=== PATIENT | female | born 1990 | race Caucasian/White ===

== ENCOUNTER → 2017-04-07 | Outpatient (CLI) | payer OTHER ==
[~2017-04-07] MED LIST: IRON18 MG PO; PRENATAL VITAM1 EAC2 PO
== END ==
LOC: LAB 16:59 → LAB SHORT 16:59
DX: R30.0 Dysuria (principal)
CPT/HCPCS: 87086

== ENCOUNTER 2017-09-29 05:50 | Inpatient (IN) | payer OTHER ==
[~2017-09-29] VITALS: Ht 160 cm; Wt 75.5 kg
[2017-09-29] MEDS ORDERED: IRON18 MG PO (06:15)
[2017-09-29] MEDS ORDERED: PRENATAL VITAM1 EAC2 PO (06:15)
[2017-09-29 06:32] LABS: BASOPHILS ABSOLUTE AUTO 0.02 K/mm3 (0.00-0.23); BASOPHILS PERCENT AUTO 0 % (0-2); EOSINOPHILS ABSOLUTE AUTO 0.06 K/mm3 (0.00-0.68); EOSINOPHILS PERCENT AUTO 1 % (0-6); Hematocrit 36.5 % (33.0-51.0); Hemoglobin 12.3 g/dL (11.5-16.0); IMMATURE GRAN ABSOLUTE AUTO 0.05 K/mm3 (0.00-0.10); IMMATURE GRAN PERCENT AUTO 1 % (0-1); LYMPHOCYTES PERCENT AUTO 20 % (21-46); MONOCYTES ABSOLUTE AUTO 0.62 K/mm3 (0.16-1.47); MONOCYTES PERCENT AUTO 6 % (4-13); Mean Corpuscular HGB 32.9 pg (26.0-34.0); Mean Corpuscular HGB Conc 33.7 g/dL (31.5-36.5); Mean Corpuscular Volume 98 fL (80-100); Mean Platelet Volume 11.4 fL (9.1-12.4); NEUTROPHILS ABSOLUTE AUTO 7.51 K/mm3 (1.96-9.15); NEUTROPHILS PERCENT AUTO 73 % (41-73); Platelet Count 235 K/mm3 (150-400); RDW Coefficient Variation 13.7 % (11.7-14.2); RDW Standard Deviation 49.5 fL (35.1-46.3); Red Blood Cell Count 3.74 M/mm3 (3.80-5.20); White Blood Cell Count 10.26 K/mm3 (4.00-11.30)
[2017-09-30 05:47] LABS: BASOPHILS ABSOLUTE AUTO 0.02 K/mm3 (0.00-0.23); BASOPHILS PERCENT AUTO 0 % (0-2); EOSINOPHILS ABSOLUTE AUTO 0.01 K/mm3 (0.00-0.68); EOSINOPHILS PERCENT AUTO 0 % (0-6); Hematocrit 32.7 % (33.0-51.0); Hemoglobin 11.2 g/dL (11.5-16.0); IMMATURE GRAN ABSOLUTE AUTO 0.08 K/mm3 (0.00-0.10); IMMATURE GRAN PERCENT AUTO 1 % (0-1); LYMPHOCYTES ABSOLUTE AUTO 1.11 K/mm3 (0.84-5.20); LYMPHOCYTES PERCENT AUTO 7 % (21-46); MONOCYTES ABSOLUTE AUTO 1.15 K/mm3 (0.16-1.47); MONOCYTES PERCENT AUTO 7 % (4-13); Mean Corpuscular HGB 33.8 pg (26.0-34.0); Mean Corpuscular HGB Conc 34.3 g/dL (31.5-36.5); Mean Corpuscular Volume 99 fL (80-100); Mean Platelet Volume 11.3 fL (9.1-12.4); NEUTROPHILS ABSOLUTE AUTO 14.32 K/mm3 (1.96-9.15); NEUTROPHILS PERCENT AUTO 86 % (41-73); Platelet Count 211 K/mm3 (150-400); RDW Coefficient Variation 13.7 % (11.7-14.2); RDW Standard Deviation 49.8 fL (35.1-46.3); Red Blood Cell Count 3.31 M/mm3 (3.80-5.20); White Blood Cell Count 16.69 K/mm3 (4.00-11.30)
== END 2017-09-30 20:58 | disposition home or self-care (01) | DRG 775 ==
LOC: BC 05:50
PROVIDERS: Obstetrics & Gynecology
PROC: 3E0R3BZ Introduction of Anesthetic Agent into Spinal Canal, Percutaneous Approach (ICD-10-PCS; 2017-09-29)
PROC: 00HU33Z Insertion of Infusion Device into Spinal Canal, Percutaneous Approach (ICD-10-PCS; 2017-09-29)
PROC: 3E033VJ Introduction of Other Hormone into Peripheral Vein, Percutaneous Approach (ICD-10-PCS; 2017-09-29)
PROC: 10E0XZZ Delivery of Products of Conception, External Approach (ICD-10-PCS; principal; 2017-09-30)
PROC: 0KQM0ZZ Repair Perineum Muscle, Open Approach (ICD-10-PCS; 2017-09-30)
DX: O69.81X0 Labor and delivery complicated by cord around neck, without compression, not applicable or unspecified (principal); O70.1 Second degree perineal laceration during delivery; Z3A.39 39 weeks gestation of pregnancy; Z37.0 Single live birth
CPT/HCPCS: 36415; 51702; 85025; J1885; J2590; J3010; J3430; J7120

== ENCOUNTER → 2018-12-08 | Outpatient (CLI) | payer BC | END | disposition home or self-care (01) | LOC: LAB 15:57 → LAB SHORT 15:57 | PROVIDERS: Obstetrics & Gynecology | DX: Z12.4 Encounter for screening for malignant neoplasm of cervix (principal) | CPT/HCPCS: G0123 ==

== ENCOUNTER → 2021-10-09 | Outpatient (CLI) | payer OTHER, BC ==
[2021-10-11 04:09] LABS: CHLAMYDIA TRACHOMATIS, NAA Negative (Negative)
== END | disposition home or self-care (01) ==
LOC: LAB 08:40 → LAB SHORT 08:40
PROVIDERS: Obstetrics & Gynecology
DX: Z34.81 Encounter for supervision of other normal pregnancy, first trimester (principal)
CPT/HCPCS: 87086; 87491; 87591

== ENCOUNTER → 2022-03-15 | Outpatient (CLI) | payer OTHER, BC ==
[2022-03-15 16:34] LABS: BASOPHILS ABSOLUTE AUTO 0.02 K/mm3 (0.00-0.23); BASOPHILS PERCENT AUTO 0 % (0-2); EOSINOPHILS ABSOLUTE AUTO 0.02 K/mm3 (0.00-0.68); EOSINOPHILS PERCENT AUTO 0 % (0-6); Hemoglobin 11.6 g/dL (11.5-16.0); IMMATURE GRAN ABSOLUTE AUTO 0.08 K/mm3 (0.00-0.10); IMMATURE GRAN PERCENT AUTO 1 % (0-1); LYMPHOCYTES ABSOLUTE AUTO 1.22 K/mm3 (0.84-5.20); LYMPHOCYTES PERCENT AUTO 13 % (21-46); MONOCYTES ABSOLUTE AUTO 0.44 K/mm3 (0.16-1.47); MONOCYTES PERCENT AUTO 5 % (4-13); Mean Corpuscular HGB Conc 33.1 g/dL (31.5-36.5); Mean Corpuscular Volume 96 fL (80-100); Mean Platelet Volume 10.9 fL (9.1-12.4); NEUTROPHILS ABSOLUTE AUTO 7.77 K/mm3 (1.96-9.15); NEUTROPHILS PERCENT AUTO 81 % (41-73); Platelet Count 274 K/mm3 (150-400); RDW Coefficient Variation 13.5 % (11.7-14.2); Red Blood Cell Count 3.63 M/mm3 (3.80-5.20); White Blood Cell Count 9.55 K/mm3 (4.00-11.30)
[2022-03-15 16:41] LABS: Glucose, Blood 107 mg/dL (70-99)
== END | disposition home or self-care (01) ==
LOC: LAB 10:02 → LAB SHORT 10:02
PROVIDERS: Obstetrics & Gynecology
DX: Z34.82 Encounter for supervision of other normal pregnancy, second trimester (principal)
CPT/HCPCS: 82947; 85025

== ENCOUNTER → 2022-04-23 | Outpatient (CLI) | payer OTHER, BC ==
[2022-04-23 19:35] LABS: Creatinine, Urine Random 36.8 mg/dL (27.00-270.00); Protein, Urine Random 19.6 mg/dL (0.0-11.9); Protein/Creat Ratio, Ur Random 0.5
== END | disposition home or self-care (01) ==
LOC: LAB SHORT 17:32 → LAB 17:32
PROVIDERS: Obstetrics & Gynecology
DX: O14.90 Unspecified pre-eclampsia, unspecified trimester (principal)
CPT/HCPCS: 82570; 84156

== ENCOUNTER 2022-06-06 16:56 | Inpatient (IN) | payer BC ==
[2022-06-06] VITALS (14 sets, daily range): BP systolic 107–148; BP diastolic 55–75
[~2022-06-06] VITALS: Ht 160 cm; Wt 88.1 kg
[2022-06-06 18:16] LABS: BASOPHILS ABSOLUTE AUTO 0.01 K/mm3 (0.00-0.23); BASOPHILS PERCENT AUTO 0 % (0-2); EOSINOPHILS ABSOLUTE AUTO 0.02 K/mm3 (0.00-0.68); EOSINOPHILS PERCENT AUTO 0 % (0-6); Hematocrit 35.9 % (33.0-51.0); Hemoglobin 12.3 g/dL (11.5-16.0); IMMATURE GRAN ABSOLUTE AUTO 0.08 K/mm3 (0.00-0.10); IMMATURE GRAN PERCENT AUTO 0 % (0-1); LYMPHOCYTES ABSOLUTE AUTO 1.15 K/mm3 (0.84-5.20); LYMPHOCYTES PERCENT AUTO 7 % (21-46); MONOCYTES ABSOLUTE AUTO 1.31 K/mm3 (0.16-1.47); MONOCYTES PERCENT AUTO 7 % (4-13); Mean Corpuscular HGB 31.1 pg (26.0-34.0); Mean Corpuscular HGB Conc 34.3 g/dL (31.5-36.5); Mean Corpuscular Volume 91 fL (80-100); NEUTROPHILS ABSOLUTE AUTO 15.25 K/mm3 (1.96-9.15); NEUTROPHILS PERCENT AUTO 86 % (41-73); Platelet Count 245 K/mm3 (150-400); RDW Coefficient Variation 14.6 % (11.7-14.2); RDW Standard Deviation 48.4 fL (35.1-46.3); Red Blood Cell Count 3.95 M/mm3 (3.80-5.20); White Blood Cell Count 17.82 K/mm3 (4.00-11.30)
[2022-06-06] MEDS ORDERED: ERGO400 PO (18:24)
[2022-06-06] MEDS ORDERED: FISH OIL 1,2001 EAC7 PO (18:24)
[2022-06-07] VITALS (20 sets, daily range): BP systolic 104–144; BP diastolic 52–77
--- NOTE | 2022-06-07 11:43 | NUR ---
1030: PT ASSISTED TO BRP. VOIDED. PT REPORTS HER LEGS FEEL FINE. DENIES ANY WEAKNESS FROM THE EPIDURAL BUT C/O PERINEAL TENDERNESS. TWO PERSON ASSIST TO BRP. PT ONLY ABLE TO SHUFFLE LEGS. INSISTS HER LEGS FEEL FINE BUT THAT THIS IS IN RESPONSE TO HER PERINEAL DISCOMFORT. NO SHOWER AT THIS TIME. PT ASSISTED TO BR WITH A CHAIR TO ROLL HER TO THE TOILET. WHEN PT BACK TO BED, MOD SWELLING OF LABIA NOTED. NO OTHER S/S OF A HEMATOMA. PT DENIES ANY TENDERNESS BACK TO BUTTOCKS. BUTTOCKS SOFT AND NON TENDER. PT DENIES ANY DIZZINESS OR LIGHTHEADEDNESS GETTING UP OUT OF BED. 1130: UP TO BRP. PT REQUESTED TO USE A CHAIR TO ROLL INTO THE BRP. PT DENIES WEAKNESS IN LEGS AND DENIES ANY PAIN OR DISCOMFORT IN BUTTOCKS. PERINEUM HAS NO CHANGE IN SWELLING. ICE PACK TO PERINEUM.
--- NOTE | 2022-06-07 14:00 | NUR ---
PT UP TO BRP WITH TWO PERSON ASSIST AND PT REQUESTS CHAIR TO ASSIST HER TO TOILET. PT DENIES ANY INCREASED PAIN. LABIA SWELLING THE SAME, LIGHTLY IMPROVED USING ICE PACK. PT HAD PREVIOUSLY DECLINED TORDOL BUT AFTER TALKING ABOUT BENEFIT OF TORDOL TO ASSIST WITH DECREASE IN SWELLING, PT CONSENT. TORDOL GIVEN. ENCOURAGED PT THAT AMBULATING ON HER OWN IS ENCOURAGED. PT REPORTS HER LABIA HURT AND THAT IS WHY SHE IS UNABLE TO AMBULATE ON HER OWN. PT TO W/C TO SEE NB IN NURSERY. DR. MCMILLAN UPDATED.
--- NOTE | 2022-06-07 14:40 | NUR ---
PT REMAINS IN NURSERY IN W/C. KENIA WELL. DESIRES TO STAY IN NURSERY AT [facility]. REPORTS SOME DISCOMFORT SITTING UP IN THE CHAIR BUT KENIA WELL.
--- NOTE | 2022-06-07 16:48 | NUR ---
r/t room. transfers with assistance to the bed from w/c. benzocaine applied to perineum. no change in perineum. pt declines an ice pack at this time.
--- NOTE | 2022-06-07 18:17 | NUR ---
EATING DINNER. DENIES PAIN. REPORTS LIDOCAINE SPRAY VERY HELPFUL. HASN'T BEEN UP TO BRP ON HER OWN YET. PT WILL CALL WHEN SHE NEEDS TO GET UP IF SHE NEEDS HELP. HAS BEEN VERY HELPFUL IN ASSISTING WITH TRANSFER OF PT.
[2022-06-08 03:01] VITALS: BP 114/56
[2022-06-08 06:11] LABS: BASOPHILS ABSOLUTE AUTO 0.03 K/mm3 (0.00-0.23); BASOPHILS PERCENT AUTO 0 % (0-2); EOSINOPHILS ABSOLUTE AUTO 0.08 K/mm3 (0.00-0.68); EOSINOPHILS PERCENT AUTO 1 % (0-6); Hematocrit 29.4 % (33.0-51.0); Hemoglobin 9.9 g/dL (11.5-16.0); IMMATURE GRAN ABSOLUTE AUTO 0.07 K/mm3 (0.00-0.10); IMMATURE GRAN PERCENT AUTO 1 % (0-1); LYMPHOCYTES ABSOLUTE AUTO 1.78 K/mm3 (0.84-5.20); LYMPHOCYTES PERCENT AUTO 13 % (21-46); MONOCYTES ABSOLUTE AUTO 0.93 K/mm3 (0.16-1.47); MONOCYTES PERCENT AUTO 7 % (4-13); Mean Corpuscular HGB 31.6 pg (26.0-34.0); Mean Corpuscular HGB Conc 33.7 g/dL (31.5-36.5); Mean Corpuscular Volume 94 fL (80-100); Mean Platelet Volume 11.2 fL (9.1-12.4); NEUTROPHILS ABSOLUTE AUTO 10.86 K/mm3 (1.96-9.15); NEUTROPHILS PERCENT AUTO 79 % (41-73); Platelet Count 195 K/mm3 (150-400); RDW Coefficient Variation 15.1 % (11.7-14.2); RDW Standard Deviation 51.6 fL (35.1-46.3); Red Blood Cell Count 3.13 M/mm3 (3.80-5.20); White Blood Cell Count 13.75 K/mm3 (4.00-11.30)
[2022-06-08 08:25] VITALS: BP 123/76
--- NOTE | 2022-06-08 08:58 | NUR ---
0745 assumed care of patient awake and alert, sitting up in chair pain wnl, hoping baby will come out to room this evening. 0845 to nsy to visit baby in w/c. states she is feeling well enoung to walk to the bathroom, but not to nsy
--- NOTE | 2022-06-08 11:37 | NUR ---
ambulated to bathroom with assist from s/o. moves slowly. s/o helps with walking and pad changes
[2022-06-08 12:52] VITALS: BP 120/64
--- NOTE | 2022-06-08 15:06 | NUR ---
DISCHARGE INSTRUCTIONS REVIEWED WITH AND COPY GIVEN TO PATIENT. DISCHARGED TO [facility] STATUS
== END 2022-06-08 14:48 | disposition home or self-care (01) | DRG 807 ==
LOC: OBS 16:56 → BC 16:56 → OBS 17:50 → BC 17:56
PROVIDERS: ADMIT Obstetrics & Gynecology
PROC: 10E0XZZ Delivery of Products of Conception, External Approach (ICD-10-PCS; principal; 2022-06-07)
PROC: 0KQM0ZZ Repair Perineum Muscle, Open Approach (ICD-10-PCS; 2022-06-07)
PROC: 3E0R3BZ Introduction of Anesthetic Agent into Spinal Canal, Percutaneous Approach (ICD-10-PCS; 2022-06-07)
PROC: 00HU33Z Insertion of Infusion Device into Spinal Canal, Percutaneous Approach (ICD-10-PCS; 2022-06-07)
DX: O70.1 Second degree perineal laceration during delivery (principal); Z37.0 Single live birth; Z87.19 Personal history of other diseases of the digestive system; Z98.890 Other specified postprocedural states; Z88.8 Allergy status to other drugs, medicaments and biological substances; Z79.899 Other long term (current) drug therapy; Z3A.39 39 weeks gestation of pregnancy
CPT/HCPCS: 36415; 51702; 59025; 85025; 86850; 86900; 86901; A9270; J1885; J2210; J2405; J2590; J7120